=== PATIENT | female | born 1980 | race Caucasian/White ===

== ENCOUNTER 2021-12-15 15:08 | Emergency (ER) | payer OTHER, SELFPAY ==
[2021-12-15 15:19] VITALS: BP 114/67; PULSE 71; RESP 20; TEMP 36.6; O2SAT 99
[2021-12-15 15:20] VITALS: BP 114/67; PULSE 71; RESP 20; TEMP 36.6; O2SAT 99
--- NOTE | 2021-12-15 15:23 | ED.URI ---
HPI - URI/Sore Throat General Chief Complaint: Upper Respiratory Infection Stated Complaint: Sore Throat Time Seen by Provider: 12/15/21 15:23 Source: patient and RN notes reviewed Mode of arrival: ambulatory Limitations: no limitations History of Present Illness HPI Narrative: 41-year-old female presented for complaint of sore throat for 1 week. Pain is worse on the right side. Endorses ears feeling full. Denies headache, nausea, vomiting, cough, fever or chills. Endorses a history of seasonal allergies. has not been taking anything for symptoms. Covid 09/2021, she states she has long COVID and occasionally will have symptoms flareup. Not due for booster yet. She has had her flu vaccine. Denies sick contacts. MD elicited complaint: cough Related Data Home Medications Medication Instructions Recorded Confirmed bupropion HCl mg PO 12/15/21 escitalopram oxalate mg 12/15/21 Allergies Allergy/AdvReac Type Severity Reaction Status Date / Time [place] Allergy Unknown THROAT Uncoded 12/15/21 15:19 SWELLING SHELLFISH Allergy Unknown THROAT Uncoded 12/15/21 15:19 SWELLING Review of Systems Review of Systems: CONSTITUTIONAL: Denies malaise, chills, sweats, fever EYES: Denies visual changes, redness, or discharge ENT: Reports sore throat and ear pressure CARDIOVASCULAR: Denies chest pain, palpitations, edema RESPIRATORY: Denies dyspnea cough, post nasal drainage. GASTROINTESTINAL: Denies abdominal pain, nausea, vomiting, diarrhea SKIN: Denies rash or itching MUSCULOSKELETAL: denies myalgia NEUROLOGIC: Denies headache Exam Narrative: GENERAL: well-appearing HEAD: Normocephalic EYES: PERRLA, conjunctivae clear ENT: Mucous membranes moist. TM pearly with light reflex bilaterally; no tragal tenderness. Oropharynx erythematous without lesions or exudate, no drooling, no hoarseness, no trismus, uvula midline. No tripod positioning, muffled voice, soft palate or pharyngeal wall bulging NECK: Supple. No lymphadenopathy CHEST: Clear to auscultation, breath sounds equal. HEART: Regular rate and rhythm. No murmur heard. SKIN: Warm, dry, no rash. NEURO: Alert and oriented x3. PSYCH: Normal mood and affect Course Course Emergency Course: Patient is aware of diagnosis, understands and agrees to treatment plan. Anticipatory guidance given. Patient agrees to follow-up as directed and is aware of reasons to seek care at the emergency department. Portions of this record may have been created with voice recognition software Level of Care: Express Care Visit Vital Signs Vital signs: Vital Signs Temperature 97.8 F 12/15/21 15:19 Pulse Rate 71 12/15/21 15:19 Respiratory Rate 20 12/15/21 15:19 Blood Pressure 114/67 12/15/21 15:19 Pulse Oximetry 99 12/15/21 15:19 Temperature 97.8 F 12/15/21 15:20 Pulse Rate 71 12/15/21 15:20 Respiratory Rate 20 12/15/21 15:20 Blood Pressure 114/67 12/15/21 15:20 Pulse Oximetry 99 12/15/21 15:20 reviewed MDM - URI/Sore Throat MDM Narrative Medical decision making narrative: Symptoms c/w pharyngitis. Patient is nontoxic appearing and appropriate for outpt treatment and f/u. Differential Diagnosis Differential diagnosis: Likely upper respiratory infection, sinusitis, viral infection and pharyngitis Lab Data Attestation: I reviewed the patient's lab results. Discharge Plan Discharge Clinical Impression: Pharyngitis Qualifiers: Pharyngitis/tonsillitis etiology: unspecified etiology Qualified Code(s): J02.9 - Acute pharyngitis, unspecified Patient Disposition: Home, Self-Care Condition: Stable Instructions: Antibiotic Form, Pharyngitis (ED) Additional Instructions: Rapid strep swab was negative today You will be notified in a few days if the culture comes back positive for strep, and appropriate antibiotics will be called in at that time. if symptoms are due to a viral illness, it is not treated with antibiotics. Viral symptoms ca
== END 2021-12-15 15:40 | disposition home or self-care (01) ==
PROVIDERS: Emergency Provider Nurse Practitioner Family; PCP Physician Assistant
DX: J02.9 Acute pharyngitis, unspecified (principal); Z86.16 Personal history of COVID-19
CPT/HCPCS: 87081; 87880; 99213; G0463